=== PATIENT | female | born 1970 ===

== ENCOUNTER 2016-05-18 09:11 | Day surgery (SDC) | payer MEDICAID ==
[2016-05-18] MEDS ORDERED: BENZOCAINE UNIT DOSE SPRAY HURRICAINE MM ONE (09:15)
[2016-05-18] MEDS ORDERED: NS 1,000 ML IV ONE (09:15)
[2016-05-18] MEDS ORDERED: MIDAZOLAM 2 MG/2 ML VIAL IVP ONE (09:15)
[2016-05-18] MEDS ORDERED: fentaNYL 100 MCG/2 ML INJ IVP ONE (09:15)
[2016-05-18] MEDS ORDERED: MIDAZOLAM 2 MG/2 ML VIAL ONE (09:48)
[2016-05-18] MEDS ORDERED: fentaNYL 100 MCG/2 ML INJ ONE (09:49)
--- NOTE | 2016-05-18 16:51 | ECHO ---
[id number] + + [address] : : [place] [address] : : [phone] + + Transesophageal Echocardiographic Report + ---+ :Name: Altagracia HATFIELD Date: 05/18/2016 10:17 AM : : Hospital Admission Number: [id number] Location: [facility]: :: 1970 Gender: Female Height: 68 in : :Age: 45 yrs Race: PTNP Weight: 240 lb : :Reason For Study: Eval for ASD : : BSA: 2.2 meters2 : + ---+ Left Ventricle Left ventricular systolic function is normal. Atria Injection of contrast documented an interatrial shunt. A patent foramen ovale is present. No thrombus is detected in the left atrial appendage. Mitral Valve The mitral valve is normal. There is trace mitral regurgitation. Tricuspid Valve Normal tricuspid valve. There is trace tricuspid regurgitation. Aortic Valve The aortic valve is trileaflet. There is no aortic insufficiency. Pulmonic Valve The pulmonic valve is not well visualized. Conclusion A 2D transesophageal echocardiogram with color flow Doppler was performed. Left ventricular systolic function is normal. Injection of contrast documented an interatrial shunt. A patent foramen ovale is present. No thrombus is detected in the left atrial appendage. There is trace mitral regurgitation. There is trace tricuspid regurgitation. There is no evidence of a true atrial septal defect. 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 Final Reading Physician: Ronal Wren signed on 05/18/2016 04:50 PM Ordering Physician: Tripp Stoner Performed By: Tripp Stoner MD
== END 2016-05-18 12:47 | disposition home or self-care (01) ==
LOC: FCATH 09:11
PROVIDERS: ATTEND Internal Medicine Cardiovascular Disease
PROC: B246ZZ4 Ultrasonography of Right and Left Heart, Transesophageal (ICD-10-PCS; principal; 2016-05-18)
DX: Q21.1 Atrial septal defect (principal); Z86.718 Personal history of other venous thrombosis and embolism; Z86.711 Personal history of pulmonary embolism
CPT/HCPCS: J2250; J3010